=== PATIENT | male | born 1965 | race Caucasian/White ===

== ENCOUNTER 2022-04-15 08:56 | Outpatient (RCR) | payer BC, SELFPAY | END 2023-03-02 23:59 | disposition home or self-care (01) | PROVIDERS: PCP Internal Medicine; Visit Provider Orthopaedic Surgery | DX: M54.2 Cervicalgia (principal); Z51.89 Encounter for other specified aftercare | CPT/HCPCS: 97110; 97162 ==

== ENCOUNTER 2023-11-01 08:01 | Outpatient (RCR) | payer BC, SELFPAY | END 2024-02-29 23:59 | disposition home or self-care (01) | PROVIDERS: PCP Internal Medicine; Visit Provider Orthopaedic Surgery | DX: M54.12 Radiculopathy, cervical region (principal); M54.2 Cervicalgia; Z51.89 Encounter for other specified aftercare | CPT/HCPCS: 97110; 97140; 97162 ==

== ENCOUNTER 2024-01-23 16:30 | Outpatient (RCR) | payer BC, SELFPAY | END 2024-03-26 16:06 | disposition home or self-care (01) | PROVIDERS: PCP Internal Medicine; Visit Provider Orthopaedic Surgery | DX: M54.2 Cervicalgia (principal); M54.12 Radiculopathy, cervical region; Z98.890 Other specified postprocedural states; M62.81 Muscle weakness (generalized); Z51.89 Encounter for other specified aftercare | CPT/HCPCS: 97110; 97140; 97161 ==